=== PATIENT | female | born 2000 | race Caucasian/White ===

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

== ENCOUNTER 2022-04-24 15:55 | Emergency (ER) | payer OTHER ==
[2022-04-24 16:09] VITALS: BP 121/81; PULSE 73; RESP 18; TEMP 98.1; BMI 29.2
[2022-04-24] MEDS ORDERED: SODIUM CHLORIDE 1,000 ML IV STA (16:24)
[2022-04-24 17:43] LABS: BASO % 0.5 % (0-2.0); EOS % 1.4 % (0-4.5); HEMATOCRIT 38.4 % (32.4-45.2); HEMOGLOBIN 12.8 GM/dL (10.7-15.3); LYMPH % 28.3 % (8-40); MCH 28.7 pg (25.7-33.7); MCHC 33.3 g/dl (32.0-36.0); MEAN CELL VOLUME 86.2 fl (80-96); MEAN PLT VOLUME 8.8 fl (7.5-11.1); NEUT % 58.8 % (42.8-82.8); PLATELET COUNT 233 10^3/uL (134-434); RBC 4.46 M/mm3 (3.60-5.2)
[2022-04-24 18:13] LABS: CALCIUM 8.8 mg/dL (8.5-10.1)
[2022-04-24 18:14] LABS: ALBUMIN 3.8 g/dl (3.4-5.0); BLOOD UREA NITROGEN 12.7 mg/dL (7-18)
[2022-04-24 18:17] LABS: CREATININE 0.6 mg/dL (0.55-1.3)
[2022-04-24 18:19] LABS: BILIRUBIN,TOTAL 0.6 mg/dL (0.2-1); TOT PROT 7.2 g/dl (6.4-8.2)
== END 2022-04-24 18:26 | disposition home or self-care (01) ==
LOC: JER 15:55
PROC: 3E0337Z Introduction of Electrolytic and Water Balance Substance into Peripheral Vein, Percutaneous Approach (ICD-10-PCS; principal; 2022-04-24)
DX: R00.2 Palpitations (principal)
CPT/HCPCS: 36415; 71046-TC-FY; 80053; 84443; 85025; 93005; 93010; 99284-25

== ENCOUNTER 2022-12-14 10:09 | Emergency (ER) | payer OTHER ==
[2022-12-14 10:15] VITALS: BP 115/65; PULSE 93; RESP 18; TEMP 98.1; BMI 30.2
[2022-12-14 11:19] LABS: EPI CELLS 24 /uL (0-25.1); HYALINE CASTS 2 /uL (0-3.1); URINE APPEARANCE CLEAR; URINE BACTERIA 157 /uL (0-1359); URINE BILIRUBIN NEGATIVE (NEGATIVE); URINE COLOR YELLOW; URINE GLUCOSE (UA) NEGATIVE (NEGATIVE); URINE KETONE NEGATIVE (NEGATIVE); URINE LEUK ESTERASE 2+ (NEGATIVE); URINE NITRITE NEGATIVE (NEGATIVE); URINE PROTEIN NEGATIVE (NEGATIVE); URINE RBC 9 /uL (0-23.9); URINE UROBILINOGEN 0.2 mg/dL (0.2-1.0); URINE WBC 272 /uL (0-25.8)
[2022-12-14 11:22] LABS: BASO % 0.4 % (0-2.0); EOS % 0.8 % (0-4.5); HEMOGLOBIN 12.3 GM/dL (10.7-15.3); LYMPH % 17.4 % (8-40); MCH 28.9 pg (25.7-33.7); MCHC 34.2 g/dl (32.0-36.0); MEAN CELL VOLUME 84.5 fl (80-96); MEAN PLT VOLUME 8.5 fl (7.5-11.1); MONO % 8.7 % (3.8-10.2); NEUT % 72.7 % (42.8-82.8); PLATELET COUNT 228 10^3/uL (134-434); RBC 4.26 M/mm3 (3.60-5.2); WHITE BLOOD COUNT 7.8 K/mm3 (4.0-10.0)
[2022-12-14 11:40] LABS: POTASSIUM 3.6 mmol/L (3.5-5.1)
[2022-12-14 11:42] LABS: ALBUMIN 3.6 g/dl (3.4-5.0); CALCIUM 8.5 mg/dL (8.5-10.1)
[2022-12-14 11:43] LABS: BLOOD UREA NITROGEN 6.4 mg/dL (7-18)
[2022-12-14 11:45] LABS: BILIRUBIN,DIRECT 0.2 mg/dL (0.0-0.2); CREATININE 0.6 mg/dL (0.55-1.3)
[2022-12-14 11:47] LABS: BILIRUBIN,TOTAL 0.5 mg/dL (0.2-1)
== END 2022-12-14 13:12 | disposition home or self-care (01) ==
LOC: JER 10:09
DX: O26.891 Other specified pregnancy related conditions, first trimester (principal); R10.2 Pelvic and perineal pain; Z3A.10 10 weeks gestation of pregnancy
CPT/HCPCS: 36415; 76801-TC; 80048; 80076; 81003; 84702; 85025; 86850; 86900; 86901; 87086; 87491; 87591; 99284-25

== ENCOUNTER 2022-12-27 23:30 | Emergency (ER) | payer OTHER ==
[2022-12-27 23:41] VITALS: BP 105/68; PULSE 72; RESP 20; TEMP 98.2; BMI 31.7
[2022-12-28 01:55] LABS: EPI CELLS 13 /uL (0-25.1); HYALINE CASTS 1 /uL (0-3.1); URINE APPEARANCE CLEAR; URINE BACTERIA 210 /uL (0-1359); URINE BILIRUBIN NEGATIVE (NEGATIVE); URINE COLOR YELLOW; URINE GLUCOSE (UA) NEGATIVE (NEGATIVE); URINE KETONE NEGATIVE (NEGATIVE); URINE LEUK ESTERASE 2+ (NEGATIVE); URINE NITRITE NEGATIVE (NEGATIVE); URINE PROTEIN NEGATIVE (NEGATIVE); URINE RBC 12 /uL (0-23.9); URINE UROBILINOGEN 0.2 mg/dL (0.2-1.0); URINE WBC 205 /uL (0-25.8)
[2022-12-28] MEDS ORDERED: CEPHALEXIN MONOHYDRATE 500 MG CAPSULE (UD) PO ONE (02:13)
[2022-12-28] MEDS ORDERED: CEPHALEXIN MONOHYDRATE 500 MG CAPSULE (UD) ONE (02:25)
== END 2022-12-28 02:34 | disposition home or self-care (01) ==
LOC: JER 23:30
DX: O26.891 Other specified pregnancy related conditions, first trimester (principal); R10.13 Epigastric pain; O23.41 Unspecified infection of urinary tract in pregnancy, first trimester; Z3A.10 10 weeks gestation of pregnancy
CPT/HCPCS: 81003; 87086; 93005; 93010; 99284-25

== ENCOUNTER 2023-02-15 14:48 | Emergency (ER) | payer OTHER ==
[2023-02-15 14:58] VITALS: BP 105/67; PULSE 109; RESP 18; TEMP 98.1; BMI 33.5
[2023-02-15] MEDS ORDERED: LACTATED RINGERS SOLUTION 1000 ML INFUS.BAG IV ONE (16:10)
[2023-02-15 16:30] LABS: HEMATOCRIT 35.3 % (32.4-45.2); HEMOGLOBIN 11.8 GM/dL (10.7-15.3); MCH 28.8 pg (25.7-33.7); MCHC 33.3 g/dl (32.0-36.0); MEAN CELL VOLUME 86.5 fl (80-96); MEAN PLT VOLUME 9.5 fl (7.5-11.1); PLATELET COUNT 218 10^3/uL (134-434); RBC 4.09 M/mm3 (3.60-5.2); RDW 13.2 % (11.6-15.6); WHITE BLOOD COUNT 9.6 K/mm3 (4.0-10.0)
[2023-02-15 16:35] LABS: EPI CELLS 7 /uL (0-25.1); HYALINE CASTS 0 /uL (0-3.1); URINE APPEARANCE CLEAR; URINE BACTERIA 234 /uL (0-1359); URINE BILIRUBIN NEGATIVE (NEGATIVE); URINE COLOR YELLOW; URINE GLUCOSE (UA) NEGATIVE (NEGATIVE); URINE KETONE TRACE (NEGATIVE); URINE LEUK ESTERASE 2+ (NEGATIVE); URINE NITRITE NEGATIVE (NEGATIVE); URINE PROTEIN NEGATIVE (NEGATIVE); URINE RBC 20 /uL (0-23.9); URINE UROBILINOGEN 0.2 mg/dL (0.2-1.0); URINE WBC 216 /uL (0-25.8)
[2023-02-15 16:44] LABS: POTASSIUM 3.7 mmol/L (3.5-5.1)
[2023-02-15 16:46] LABS: ALBUMIN 3.2 g/dl (3.4-5.0); CALCIUM 8.9 mg/dL (8.5-10.1); MAGNESIUM 1.8 mg/dL (1.8-2.4)
[2023-02-15 16:49] LABS: CREATININE 0.5 mg/dL (0.55-1.3); PHOSPHOROUS 3.5 mg/dL (2.5-4.9)
[2023-02-15 16:51] LABS: BILIRUBIN,TOTAL 0.2 mg/dL (0.2-1); TOT PROT 6.8 g/dl (6.4-8.2)
[2023-02-15] MEDS ORDERED: CEFPODOXIME PROXETIL 100 MG TABLET PO ONE (17:44)
[2023-02-15] MEDS ORDERED: CEFPODOXIME PROXETIL 200 MG TABLET [NF] PO ONE (18:00)
== END 2023-02-15 18:29 | disposition home or self-care (01) ==
LOC: JER 14:48
DX: O26.892 Other specified pregnancy related conditions, second trimester (principal); R00.2 Palpitations; R30.9 Painful micturition, unspecified; M54.9 Dorsalgia, unspecified; R30.0 Dysuria; R63.0 Anorexia; O23.42 Unspecified infection of urinary tract in pregnancy, second trimester; N39.0 Urinary tract infection, site not specified; Z3A.17 17 weeks gestation of pregnancy
CPT/HCPCS: 36415; 80053; 81003; 83735; 84100; 84484; 85027; 87086; 93005; 93010; 99284-25

== ENCOUNTER 2023-07-26 03:48 | Inpatient (IN) | payer OTHER ==
[2023-07-26] MEDS ORDERED: AMPICILLIN SODIUM 2 GM VIAL ONE (05:04)
[2023-07-26] MEDS: ELECTROLYTE-148 SOLN 1,000 ML IV SCH (05:07)
[2023-07-26] MEDS: AMPICILLIN - 2 GM in SODIUM CHLORIDE 100 ML IVPB ONE (05:08)
[2023-07-26 05:13] LABS: BASO % 0.1 % (0-2.0); EOS % 0.3 % (0-4.5); HEMATOCRIT 39.4 % (32.4-45.2); HEMOGLOBIN 13.5 GM/dL (10.7-15.3); LYMPH % 15.5 % (8-40); MCH 29.4 pg (25.7-33.7); MCHC 34.2 g/dl (32.0-36.0); MEAN PLT VOLUME 9.2 fl (7.5-11.1); MONO % 9.9 % (3.8-10.2); NEUT % 74.2 % (42.8-82.8); PLATELET COUNT 176 10^3/uL (134-434); RBC 4.58 M/mm3 (3.60-5.2); RDW 13.1 % (11.6-15.6); WHITE BLOOD COUNT 10.6 K/mm3 (4.0-10.0)
[2023-07-26 05:16] LABS: INR 1.16 (0.83-1.09); PROTHROMBIN TIME (PATIENT) 13.4 SEC (9.7-13.0)
[2023-07-26 05:18] LABS: ACTIVATED PTT 31.8 SECONDS (25.2-36.5)
[2023-07-26 05:34] VITALS: BMI 39.1
[2023-07-26] MEDS ORDERED: FENTANYL/BUPIVACAINE/NS/PF - PCEA - 50 ML DISP.SYRIN EP ONE ×2 (05:47→09:24)
[2023-07-26] MEDS ORDERED: BUTORPHANOL TARTRATE 2 MG/ML VIAL ONE (06:09)
[2023-07-26] MEDS: BUTORPHANOL TARTRATE 1 MG/ML VIAL IVPB ONE (06:20)
[2023-07-26 07:34] LABS: POTASSIUM 3.8 mmol/L (3.5-5.1)
[2023-07-26 07:35] LABS: CALCIUM 9.4 mg/dL (8.5-10.1)
[2023-07-26 07:36] LABS: BLOOD UREA NITROGEN 8.9 mg/dL (7-18)
[2023-07-26 07:39] LABS: CREATININE 0.5 mg/dL (0.55-1.3)
[2023-07-26] MEDS ORDERED: AMPICILLIN SODIUM 1 GM VIAL ONE (09:00)
[2023-07-26] MEDS ORDERED: SODIUM CHLORIDE 100 ML IVPB ONE (09:00)
[2023-07-26] MEDS: AMPICILLIN - 1 GM in SODIUM CHLORIDE 100 ML IVPB SCH (09:04)
[2023-07-26] MEDS ORDERED: OXYTOCIN 30 UNITS in 0.9% NS 30 UNIT/500 ML INFUS.BAG IVPB ONE (09:21)
[2023-07-26] MEDS: OXYTOCIN 30 UNITS in 0.9% NS 30 UNIT/500 ML INFUS.BAG IVPB SCH (09:31)
[2023-07-26] MEDS ORDERED: BUPIVACAINE HCL/PF 0.25% (2.5MG/ML) 10 ML VIAL ONE (09:32)
[2023-07-26] MEDS ORDERED: NALOXONE HCL 0.4 MG/ML VIAL IVPUSH PRN (09:37)
[2023-07-26] MEDS: FENTANYL/BUPIVACAINE/NS/PF - PCEA - 50 ML DISP.SYRIN EP SCH (09:54)
[2023-07-26] MEDS ORDERED: LIDOCAINE HCL 1% PRESERVATIVE FREE - 30ML VIAL ONE (11:06)
[2023-07-26] MEDS ORDERED: OXYTOCIN 20 UNITS in 0.9% NS 20 UNIT/1,000 ML INFUS.BAG IV ONE (11:07)
[2023-07-26] MEDS: OXYTOCIN 20 UNITS in 0.9% NS 20 UNIT/1,000 ML INFUS.BAG IV SCH (11:45)
[2023-07-26] MEDS ORDERED: WITCH HAZEL 50% (TUCKS) 40 PAD/JAR PAD TP PRN (11:47)
[2023-07-26] MEDS ORDERED: ACETAMINOPHEN 325 MG TABLET (FP) PO PRN (11:47)
[2023-07-26] MEDS ORDERED: IBUPROFEN 600 MG TABLET (FP) PO PRN (11:47)
[2023-07-26] MEDS ORDERED: BISACODYL 10 MG SUPP.RECT RC PRN (11:47)
[2023-07-26] MEDS ORDERED: METHYLERGONOVINE MALEATE 0.2 MG/1 ML AMP IM PRN (11:47)
[2023-07-26] MEDS ORDERED: BENZOCAINE 28 GM HEMORRHOIDAL OINTMENT TP PRN (11:47)
[2023-07-26] MEDS ORDERED: BENZOCAINE 20% 57 GM BOTTLE TP PRN (11:47)
[2023-07-27 08:21] LABS: BASO % 0.2 % (0-2.0); HEMATOCRIT 35.6 % (32.4-45.2); HEMOGLOBIN 12.2 GM/dL (10.7-15.3); LYMPH % 23.4 % (8-40); MCH 29.3 pg (25.7-33.7); MCHC 34.2 g/dl (32.0-36.0); MEAN CELL VOLUME 85.7 fl (80-96); MEAN PLT VOLUME 9.3 fl (7.5-11.1); MONO % 7.7 % (3.8-10.2); NEUT % 66.7 % (42.8-82.8); PLATELET COUNT 170 10^3/uL (134-434); RBC 4.16 M/mm3 (3.60-5.2); RDW 13.1 % (11.6-15.6); WHITE BLOOD COUNT 9.4 K/mm3 (4.0-10.0)
[2023-07-27] MEDS: PRENATAL VITAMINS W/ FOLIC ACID TABLET (FP) PO SCH (09:28)
[2023-07-27] MEDS ORDERED: SENNOSIDES/DOCUSATE COMBO (SENNA PLUS) TABLET (UD) PO PRN (22:00)
[2023-07-28 07:59] VITALS: BP 104/56; PULSE 88; RESP 16; TEMP 98
== END 2023-07-28 15:23 | disposition home or self-care (01) | DRG 560 ==
LOC: JLDR 03:48 → J3W 14:21
PROVIDERS: ADMIT Obstetrics & Gynecology; ATTEND Obstetrics & Gynecology
PROC: 10E0XZZ Delivery of Products of Conception, External Approach (ICD-10-PCS; principal; 2023-07-26)
PROC: 10907ZC Drainage of Amniotic Fluid, Therapeutic from Products of Conception, Via Natural or Artificial Opening (ICD-10-PCS; 2023-07-26)
DX: O77.0 Labor and delivery complicated by meconium in amniotic fluid (principal); O99.824 Streptococcus B carrier state complicating childbirth; Z3A.40 40 weeks gestation of pregnancy; Z37.0 Single live birth
CPT/HCPCS: 36415; 59025; 80048; 83986-QW; 85025; 85610; 85730; 86780; 86850; 86900; 86901

== ENCOUNTER 2023-08-16 23:00 | Emergency (ER) | payer OTHER ==
[2023-08-16 23:09] VITALS: BP 104/70; PULSE 100; RESP 20; TEMP 98.5; BMI 35.7
[2023-08-16 23:54] LABS: THROAT:GRP A STREP NOT DETECTED (NOTDETECTED)
[2023-08-17] MEDS ORDERED: IBUPROFEN 400 MG TABLET (FP) PO ONE ×2 (00:31→00:33)
== END 2023-08-17 00:47 | disposition home or self-care (01) ==
LOC: JER 23:00
DX: R50.9 Fever, unspecified (principal); R51.9 Headache, unspecified; U07.1 COVID-19; J06.9 Acute upper respiratory infection, unspecified
CPT/HCPCS: 0241U-QW; 87651; 99283-25